=== PATIENT | female | born 1970 | race Caucasian/White ===

== ENCOUNTER 2017-05-08 07:23 | Inpatient (IN) | payer OTHER ==
[~2017-05-08] VITALS: Ht 161.3 cm; Wt 104.2 kg
[~2017-05-08 07:23] MED LIST: ALVESCO6.1 GM IH; ATARAX,VISTARIL25 MG PO; CO Q-10100 MG PO; DAILY VALUE1 EACH PO; FLONASE16 G1 BOTH NARES; IMITREX100 MG PO; MAGNESIUM250 MG PO; NAPROSYN500 MG PO; OMEGA 3-6-9 CO1 EACH PO; PREVACID30 MG PO; REGLAN10 MG PO; VITAMIN D35000 UNIT PO; VITAMIN K240 MCG PO; XANAX1 MG PO
[2017-05-08] MEDS ORDERED: PREVACID30 MG PO (07:58)
[2017-05-08] MEDS ORDERED: BENADRYL ALLERG25 MG PO (07:59)
[2017-05-08] MEDS ORDERED: MUCINEX600 MG PO (08:00)
[2017-05-08] MEDS ORDERED: TYLENOL REGULA325 MG PO (08:01)
[2017-05-08 08:10] VITALS: BP 127/79
[2017-05-08] MEDS ORDERED: VENTOLIN HFA18 GM IH (09:08)
[2017-05-08 13:41] VITALS: BP 117/76
[2017-05-08 16:38] LABS: HEMATOCRIT 34.6 % (36.0-46.0); MCH 27.4 PG (29.0-34.0); MCHC 31.8 G/DL (30.0-36.0); MCV 86.1 FL (83-99); MEAN PLAT.VOLUME 8.9 uM^3 (9.5-12.4); PLATELET COUNT 326 K/uL (156-360); RBC DIS.WIDTH-CV 14.7 % (11.8-14.6); RBC DIS.WIDTH-SD 46.6 % (39-53); RED BLOOD COUNT 4.02 M/uL (3.80-5.20); WHITE BLOOD COUNT 13.1 K/uL (4.1-10.2)
[2017-05-08 17:07] LABS: ANION GAP 9 MEQ/L (2-14); CHLORIDE 105 MEQ/L (99-109); GFR ESTIMATE (CALCULATED) > 59 mL/min/; GLUCOSE 195 mg/dL (70-99); POTASSIUM 4.4 MEQ/L (3.7-5.4); SAMPLE HEMOLYSIS CHECK 0; SAMPLE ICTERIC CHECK 0; SAMPLE LIPEMIA CHECK 0; SODIUM 138 MEQ/L (136-147); UREA NITROGEN (BUN) 14 mg/dL (9-23)
[2017-05-08 17:09] VITALS: BP 110/98
[2017-05-08 19:36] VITALS: BP 130/80
[2017-05-09 00:42] VITALS: BP 106/63
[2017-05-09 06:44] VITALS: BP 114/70
[2017-05-09 07:13] LABS: HEMATOCRIT 31.5 % (36.0-46.0); MCH 27.7 PG (29.0-34.0); MCHC 31.7 G/DL (30.0-36.0); MCV 87.3 FL (83-99); MEAN PLAT.VOLUME 8.9 uM^3 (9.5-12.4); PLATELET COUNT 299 K/uL (156-360); RBC DIS.WIDTH-CV 14.9 % (11.8-14.6); RBC DIS.WIDTH-SD 48.1 % (39-53); RED BLOOD COUNT 3.61 M/uL (3.80-5.20); WHITE BLOOD COUNT 11.4 K/uL (4.1-10.2)
[2017-05-09 07:40] LABS: ANION GAP 5 MEQ/L (2-14); CHLORIDE 103 MEQ/L (99-109); GFR ESTIMATE (CALCULATED) > 59 mL/min/; POTASSIUM 3.9 MEQ/L (3.7-5.4); SAMPLE HEMOLYSIS CHECK 0; SAMPLE ICTERIC CHECK 0; SAMPLE LIPEMIA CHECK 0; SODIUM 134 MEQ/L (136-147); UREA NITROGEN (BUN) 10 mg/dL (9-23)
[2017-05-09 07:41] LABS: GLUCOSE 115 mg/dL (70-99)
[2017-05-09 07:50] VITALS: BP 110/66
[2017-05-09] MEDS ORDERED: TRAMADOL HCL50 MG PO (11:59)
[2017-05-09 12:04] VITALS: BP 107/59
== END 2017-05-09 14:15 | disposition home or self-care (01) | DRG 743 ==
LOC: 2SOUTH → 2EAST 13:28 → 2SOUTH 14:01 → EDSTATUS 15:48 → SDC 15:48 → 2SOUTH 15:49 → 2EAST 05-09 14:15
PROVIDERS: Obstetrics & Gynecology Gynecologic Oncology
DX: N83.201 Unspecified ovarian cyst, right side (principal); E66.9 Obesity, unspecified; N83.9 Noninflammatory disorder of ovary, fallopian tube and broad ligament, unspecified; N13.5 Crossing vessel and stricture of ureter without hydronephrosis; N83.202 Unspecified ovarian cyst, left side; K21.9 Gastro-esophageal reflux disease without esophagitis; G40.909 Epilepsy, unspecified, not intractable, without status epilepticus; F32.9 Major depressive disorder, single episode, unspecified; K76.0 Fatty (change of) liver, not elsewhere classified; Z68.39 Body mass index [BMI] 39.0-39.9, adult
CPT/HCPCS: 36415; 80048; 80053; 84702; 85025; 85027; 85610; 85730; 86900; 86901; 86920; 87086; 88305; 94640; 94640 76; 94799; J0131; J1100; J1170; J1580; J1650; J1885; J2250; J2405; J2710; J2765; J3010; J7120; S0030